=== PATIENT | female | born 1960 | race Caucasian/White ===

== ENCOUNTER 2018-03-11 19:36 | Inpatient (IN) | payer BC ==
[~2018-03-11] VITALS: Ht 154.9 cm; Wt 76.7 kg
--- NOTE | ~2018-03-11 | EKG ---
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
--- NOTE | ~2018-03-11 | EKG ---
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
--- NOTE | ~2018-03-11 | CON ---
[place], [place] REPORT OF CONSULTATION NAME: IVONNE SRIVASTAVA UNIT #: [id number] ROOM: 530 DOCTOR: JON ESTRADA MD BIRTHDATE: [birth year] DOS: 03/12/2018 REASON FOR CONSULTATION: Chest heaviness and flutters. HISTORY OF PRESENT ILLNESS: The patient is a 57-year-old woman who was seen at her bedside at the [facility] on the morning of 03/12/2018. She presented the previous evening with a 5-day history of intermittent chest heaviness and "mild flutters." She never had anything like this before. Symptoms began spontaneously. There was nothing that she was able to do that made them better or worse. She does admit that she has been under some stress lately because she had to put her mother in the jail and they are cleaning out and preparing to sell her home. She denies that her symptoms have caused any diaphoresis, nausea, lightheadedness or syncope. They have not interfered with her activities, but have made her feel anxious. She denies any previous history of similar symptoms. PAST MEDICAL HISTORY: Includes the followin. Hypertension for about 15 years, managed with atenolol. 2. No previous history of heart attack, stroke, diabetes or cigarette abuse. FAMILY HISTORY: The patient's grandfather of a heart attack at age 75. Her father of complications of dementia, but did have hypertension. Her mother has hypertension. A brother has hypertension. There is no family history of early coronary disease or diabetes. REVIEW OF SYSTEMS: The patient denies diplopia or loss of vision. She denies lightheadedness or syncope. She denies any focal weakness. She denies fevers, chills, sweats or recent weight change. She denies orthopnea or PND. She denies cough or hemoptysis, but has had some wheezing and chest heaviness lately and noticed this, especially when she sat down on a sofa. She is worried about mold in her home. She denies any hemoptysis or hematemesis. She denies change in bowel or bladder habits and denies blood in her stools or urine. She denies any peripheral edema or history of blood clots in her legs. She denies any skin rashes. She denies heat or cold intolerance and denies polyuria or polydipsia. Remainder of the review of systems is negative except as noted above. MEDICATIONS PRIOR TO ADMISSION: Atenolol 50 mg once a day. ALLERGIES: THE PATIENT HAS AN ALLERGY TO PENICILLIN AND ORANGES. SOCIAL HISTORY: The patient is and lives with her . 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 She does not smoke or consume significant amounts of alcohol. PHYSICAL EXAMINATION: GENERAL: Reveals a well-nourished white female, is awake, alert and oriented. VITAL SIGNS: Pulse is 60 and regular, blood pressure is 150/80. She is afebrile. She weighs 76.6 kg and has a body mass index of 31.9. HEENT: Normocephalic and atraumatic. Extraocular muscles are intact. Sclerae are clear. Pupils equal, round and react to light. The oral mucosa is moist. [place], [place] REPORT OF CONSULTATION NAME: IVONNE SRIVASTAVA UNIT #: [id number] ROOM: [facility] DOCTOR: JON ESTRADA MD BIRTHDATE: [birth year] Tongue is midline. NECK: Supple. She has no jugular distention. Carotids are full. She has no bruits. She has no neck or supraclavicular masses and no thyromegaly. LUNGS: Respirations are unlabored. Her chest is clear to auscultation and percussion. She has no presacral edema or chest wall tenderness. HEART: Has a regular rhythm. She has no murmurs, rubs or gallops. The PMI is not displaced. There is no precordial heave, lift or thrill. ABDOMEN: Soft and normally active without masses, organomegaly or bruits. EXTREMITIES: Showed no edema. Peripheral pulses are easily palpated bilaterally. I reviewed her electrocardiogram. It showed sinus rhythm and was a normal tracing. Chest x-ray was normal. D-dimer was normal. I did review her monitor strips and went over her monitoring at central monitoring station. She had no significant arrhythmias since admission even though she is still aware of her heartbeat on occasion. IMPRESSION: 1. Atypical chest discomfort with a chest heaviness and fluttering. The patient has no objective evidence for acute myocardial ischemia or any significant arrhythmias. 2. Essential hypertension, usually managed with metoprolol. 3. Possible asthma triggered by exposure to chemicals at her place of work and possibly mold in her home. PLAN: The patient has eaten breakfast. We will plan on a routine exercise stress test without imaging later this afternoon after she has been fasting for 4 or 5 hours. If her exercise capacity is good and she shows no signs of coronary ischemia on a standard stress test then no further cardiac evaluation will be indicated and she could be managed as an outpatient for increased cardiac awareness, most likely due to anxiety. [facility] and I thank the hospitalist physicians for asking our advice regarding the patient's care. JON ESTRADA MD CM:CONSTR:REPORT OF CONSULTATION 0 03/12/18 1114 interface
--- NOTE | ~2018-03-11 | EKG ---
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
[2018-03-11 19:42] VITALS: BP 172/96
[2018-03-11] MEDS ORDERED: ATENOLOL50 M1 PO (19:49)
[2018-03-11 20:02] LABS: BASO % 0.1 % (0.0-1.0); EOS # 0.2 10*3/uL (0.0-0.4); EOS % 1.9 % (1.0-4.0); HEMATOCRIT 39.1 % (37.0-47.0); LYMPH # 2.2 10*3/uL (1.3-4.4); LYMPH % 27.4 % (27.0-41.0); MEAN CELL VOLUME 94.2 fl (81.0-99.0); MEAN CORPUSCULAR HGB 31.3 pg (27.0-31.0); MEAN CORPUSCULAR HGB CONC 33.2 g/dl (33.0-37.0); MEAN PLATELET VOLUME 11.5 fl (9.6-12.3); MONO # 0.7 10*3/uL (0.1-1.0); MONO % 8.8 % (3.0-9.0); NEUT # 4.9 10*3/uL (2.3-7.9); NEUT % 61.5 % (47.0-73.0); PLATELET COUNT AUTOMATED 268 10*3/uL (130-400); RED BLOOD COUNT 4.15 10*6/uL (4.10-5.10); RED CELL DISTRI WIDTH 13.6 % (0-14.5)
[2018-03-11 20:09] VITALS: BP 149/84
[2018-03-11 20:13] LABS: ACT PARTIAL THROMBO TIME 22.3 SECONDS (20.8-31.5)
[2018-03-11 20:18] LABS: ALBUMIN 4.1 gm/dl (3.1-4.5); ALKALINE PHOSPHATASE 91 U/L (45-117); BUN 21 mg/dl (7-24); CHLORIDE 105 mmol/L (98-107); CREATININE 0.83 mg/dL (0.55-1.02); POTASSIUM 4.1 mmol/L (3.5-5.1); SGOT/AST 21 IU/L (3-35); SGPT/ALT 31 U/L (12-78); SODIUM 140 mmol/L (136-145)
[2018-03-11 20:20] LABS: TROPONIN I < 0.015 ng/ml (<0.045)
[2018-03-11 20:39] VITALS: BP 150/83
[2018-03-11 21:10] VITALS: BP 156/86
[2018-03-11 21:45] VITALS: BP 153/78
[2018-03-11 23:22] VITALS: BP 150/80
[2018-03-12 02:37] LABS: BUN 19 mg/dl (7-24); CHLORIDE 105 mmol/L (98-107); CREATININE 0.69 mg/dL (0.55-1.02); POTASSIUM 3.4 mmol/L (3.5-5.1); SODIUM 142 mmol/L (136-145)
[2018-03-12 02:42] LABS: CHOLESTEROL 175 mg/dL (<200); HDL CHOLESTEROL 48 mg/dl (40-60); LDL CHOLESTEROL 112 mg/dL (9-159); PHOSPHOROUS 3.7 mg/dL (2.5-4.9); TRIGLYCERIDES 76 mg/dl (<150); VLDL CHOLESTEROL 15 mg/dL (6-40)
[2018-03-12 07:02] LABS: VITAMIN D, 25-HYDROXY 20.8 ng/mL (30-100)
[2018-03-12 08:00] VITALS: BP 138/82
[2018-03-12 12:00] VITALS: BP 135/78
[2018-03-12 16:00] VITALS: BP 141/80
== END 2018-03-12 17:00 | disposition home or self-care (01) | DRG 206 ==
LOC: ED 19:36 → 5E 21:17 → EDHOLD 21:17 → 5E 21:17
PROVIDERS: Emergency Medicine; Student in an Organized Health Care Education/Training Program
PROC: 4A02XM4 Measurement of Cardiac Total Activity, External Approach (ICD-10-PCS; principal; 2018-03-12)
DX: M94.0 Chondrocostal junction syndrome [Tietze] (principal); I10 Essential (primary) hypertension; E78.00 Pure hypercholesterolemia, unspecified; E66.9 Obesity, unspecified; Z88.0 Allergy status to penicillin; Z91.018 Allergy to other foods; Z82.49 Family history of ischemic heart disease and other diseases of the circulatory system; Z82.0 Family history of epilepsy and other diseases of the nervous system; Z79.899 Other long term (current) drug therapy; Z68.30 Body mass index [BMI] 30.0-30.9, adult

== ENCOUNTER → 2018-05-17 | Outpatient (CLI) | payer BC ==
[~2018-05-17] MED LIST: ATENOLOL50 M1 PO
[2018-05-17 10:08] LABS: BASO % 0.4 % (0.0-1.0); EOS # 0.1 10*3/uL (0.0-0.4); EOS % 2.1 % (1.0-4.0); HEMATOCRIT 40.7 % (37.0-47.0); HEMOGLOBIN 13.6 g/dl (12.0-16.0); LYMPH # 1.3 10*3/uL (1.3-4.4); MEAN CELL VOLUME 93.6 fl (81.0-99.0); MEAN CORPUSCULAR HGB 31.3 pg (27.0-31.0); MEAN CORPUSCULAR HGB CONC 33.4 g/dl (33.0-37.0); MEAN PLATELET VOLUME 12.4 fl (9.6-12.3); MONO # 0.5 10*3/uL (0.1-1.0); MONO % 9.3 % (3.0-9.0); NEUT % 60.8 % (47.0-73.0); PLATELET COUNT AUTOMATED 179 10*3/uL (130-400); RED BLOOD COUNT 4.35 10*6/uL (4.10-5.10); RED CELL DISTRI WIDTH 13.6 % (0-14.5); WHITE BLOOD COUNT 4.9 10*3/uL (4.8-10.8)
[2018-05-17 10:19] LABS: ALBUMIN 3.9 gm/dl (3.1-4.5); ALKALINE PHOSPHATASE 81 U/L (45-117); BUN 18 mg/dl (7-24); CHLORIDE 104 mmol/L (98-107); CHOLESTEROL 166 mg/dL (<200); CREATININE 0.72 mg/dL (0.55-1.02); HDL CHOLESTEROL 54 mg/dl (40-60); LDL CHOLESTEROL 98 mg/dL (9-159); POTASSIUM 4.1 mmol/L (3.5-5.1); SGOT/AST 26 IU/L (3-35); SGPT/ALT 29 U/L (12-78); SODIUM 136 mmol/L (136-145); TOTAL PROTEIN 7.7 gm/dL (6.4-8.2); TRIGLYCERIDES 68 mg/dl (<150); VLDL CHOLESTEROL 14 mg/dL (6-40)
== END | disposition home or self-care (01) ==
LOC: LAB 09:25
PROVIDERS: Family Medicine
DX: E03.9 Hypothyroidism, unspecified (principal); E16.2 Hypoglycemia, unspecified

== ENCOUNTER 2024-11-15 03:12 | Emergency (ER) | payer BC ==
[~2024-11-15] VITALS: Ht 152.4 cm; Wt 64.4 kg
[2024-11-15] MEDS ORDERED: METHOCARBAMOL 500 MG TAB PO ONE (03:55)
[2024-11-15] MEDS ORDERED: METHOCARBAMOL500 M1 PO (03:55)
== END 2024-11-15 04:10 | disposition home or self-care (01) ==
LOC: ED 03:12
DX: M79.661 Pain in right lower leg (principal); Z91.018 Allergy to other foods; Z88.0 Allergy status to penicillin; Z79.899 Other long term (current) drug therapy; Z98.890 Other specified postprocedural states

== ENCOUNTER 2024-11-20 06:44 | Emergency (ER) | payer BC ==
[~2024-11-20] VITALS: Ht 154.9 cm; Wt 63.0 kg
[~2024-11-20 06:44] MED LIST changes: +METHOCARBAMOL500 M1 PO
[2024-11-20] MEDS ORDERED: METOPROLOL SUCC25 M2 PO (06:59)
[2024-11-20] MEDS ORDERED: TRIAMTERENE-HC1 EAC2 PO (07:00)
[2024-11-20] MEDS ORDERED: PREDNISONE20 M1 PO (07:19)
[2024-11-20] MEDS ORDERED: TRIAMCINOLONE430 GM TD (07:19)
[2024-11-20] MEDS ORDERED: CLINDAMYCIN HC300 MG PO (07:19)
== END 2024-11-20 07:36 | disposition home or self-care (01) ==
LOC: ED 06:44
DX: L25.9 Unspecified contact dermatitis, unspecified cause (principal); I10 Essential (primary) hypertension; E78.5 Hyperlipidemia, unspecified; Z91.018 Allergy to other foods; Z88.0 Allergy status to penicillin; Z79.899 Other long term (current) drug therapy; Z98.890 Other specified postprocedural states